=== PATIENT | male | born 1945 | race Caucasian/White ===

== ENCOUNTER 2021-09-11 13:49 | Emergency (ER) | payer MEDICARE, OTHER ==
[~2021-09-11] VITALS: Ht 167.7 cm; Wt 70.3 kg
--- NOTE | 2021-09-11 13:57 | ED Dyspnea ---
General Chief Complaint: Respiratory Problems Stated Complaint: LOW O2 History of Present Illness Date Seen by Provider: Sep 11, 2021 Time Seen by Provider: 13:52 Initial Comments 76-year-old male presents with feeling of some dizziness and off balance and nausea. Patient reports that his symptoms started around a week ago. That he had a little bit abdominal pain is resolved. Patient reports that he maybe had some mild shortness of breath earlier but none at this time. He has been checked and under low oxygen but denies any low oxygen. Patient reports that he was seen by his primary care provider yesterday, tested negative for COVID. That he was given some nausea medication that improved but it returned again today. Allergies and Home Medications Allergies Coded Allergies: hydrocodone (Verified Adverse Reaction, Unknown, Nausea, 09/11/21) Patient Home Medication List Home Medication List Reviewed: Yes Review of Systems Review of Systems Constitutional: No chills; dizziness; No fever; malaise Respiratory: No cough, No short of breath Cardiovascular: No chest pain, No palpitations Gastrointestinal: No abdominal pain, No diarrhea; nausea; No vomiting Musculoskeletal: no symptoms reported Skin: no symptoms reported Psychiatric/Neurological: No Symptoms Reported Physical Exam Vital Signs Vital Signs - First Documented 09/11/21 13:53 Temp 35.4 Pulse 66 Resp 16 B/P (MAP) 145/81 (102) O2 Delivery Room Air Capillary Refill : Height, Weight, BMI Height: '" Weight: lbs. oz. kg; BMI Method: General Appearance: No Apparent Distress, WD/WN Respiratory: Lungs Clear, Normal Breath Sounds Cardiovascular: Regular Rate, Rhythm Gastrointestinal: Non Tender, Soft Extremity: Normal Capillary Refill, Normal Range of Motion Neurologic/Psychiatric: Alert, Oriented x3, No Motor/Sensory Deficits, dairy farm manager II- XII Norm as Tested Progress/Results/Core Measures Results/Orders Lab Results Laboratory Tests Test 09/11/21 13:57 09/11/21 14:03 09/11/21 14:11 Range/Units White Blood Count 9.0 4.3-11.0 10^3/uL Red Blood Count 4.77 4.30-5.52 10^6/uL Hemoglobin 14.1 13.3-17.7 g/dL Hematocrit 42 40-54 % Mean Corpuscular Volume 87 80-99 fL Mean Corpuscular Hemoglobin 30 25-34 pg Mean Corpuscular Hemoglobin Concent 34 32-36 g/dL Red Cell Distribution Width 12.2 10.0-14.5 % Platelet Count 350 130-400 10^3/uL Mean Platelet Volume 8.7 L 9.0-12.2 fL Immature Granulocyte % (Auto) 1 % Neutrophils (%) (Auto) 55 42-75 % Lymphocytes (%) (Auto) 29 12-44 % Monocytes (%) (Auto) 10 0-12 % Eosinophils (%) (Auto) 5 0-10 % Basophils (%) (Auto) 1 0-10 % Neutrophils # (Auto) 5.0 1.8-7.8 X 10^3 Lymphocytes # (Auto) 2.6 1.0-4.0 X 10^3 Monocytes # (Auto) 0.9 0.0-1.0 X 10^3 Eosinophils # (Auto) 0.4 H 0.0-0.3 10^3/uL Basophils # (Auto) 0.1 0.0-0.1 10^3/uL Immature Granulocyte # (Auto) 0.1 0.0-0.1 10^3/uL Sodium Level 138 135-145 MMOL/L Potassium Level 4.1 3.6-5.0 MMOL/L Chloride Level 99 98-107 MMOL/L Carbon Dioxide Level 29 21-32 MMOL/L Anion Gap 10 5-14 MMOL/L Blood Urea Nitrogen 16 7-18 MG/DL Creatinine 1.12 0.60-1.30 MG/DL Estimat Glomerular Filtration Rate 68 BUN/Creatinine Ratio 14 Glucose Level 114 H 70-105 MG/DL Calcium Level 9.8 8.5-10.1 MG/DL Corrected Calcium 9.6 8.5-10.1 MG/DL Magnesium Level 2.0 1.6-2.4 MG/DL Total Bilirubin 0.6 0.1-1.0 MG/DL Aspartate Amino Transf (AST/SGOT) 11 5-34 U/L Alanine Aminotransferase (ALT/SGPT) 13 0-55 U/L Alkaline Phosphatase 77 40-136 U/L Troponin I < 0.30 <0.30 NG/ML Total Protein 6.9 6.4-8.2 GM/DL Albumin 4.2 3.2-4.5 GM/DL Lipase 30 8-78 U/L Influenza Type A Antigen NEGATIVE NEGATIVE Influenza Type B Antigen NEGATIVE NEGATIVE Urine Color YELLOW Urine Clarity CLEAR Urine pH 6.0 5-9 Urine Specific [place] 1.015 L 1.016-1.022 Urine Protein NEGATIVE NEGATIVE Urine Glucose (UA) NEGATIVE NEGATIVE Urine Ketones NEGATIVE NEGATIVE Urine Nitrite NEGATIVE NEGATIVE Urine Bilirubin NEGATIVE NEGATIVE Urine Urobilinogen 0.2 < = 1.0 MG/DL Urine Leukocyte Esterase NEGATIVE NEGATIVE Urine RBC (Auto) NEGATIVE NEGATIVE Urine RBC NONE /HPF Urine WBC 0-2 /HPF Urine Squamous Epithelial Cells RARE /HPF Urine Crystals NONE /LPF Urine Bacteria NEGATIVE /HPF Urine Casts NONE /LPF Urine Mucus SMALL H /LPF Urine Culture Indicated NO My Orders Orders - GAONA,MONICO L DO Cbc With Automated Diff (09/11/21 13:59) Comprehensive Metabolic Panel (09/11/21 13:59) Lipase (09/11/21 13:59) Magnesium (09/11/21 13:59) Ua Culture If Indicated (09/11/21 13:59) Troponin I Fs (09/11/21 13:59) Influenza A & B Antigens (09/11/21 13:59) Ondansetron Injection (Zofran Injectio (09/11/21 14:15) Ns Iv 1000 Ml (Sodium Chloride 0.9%) (09/11/21 14:07) Medications Given in ED Current Medications Medications Dose Ordered Sig/Rashid Route Start Time Stop Time Status Last Admin Dose Admin Ondansetron HCl 4 mg ONCE ONCE IVP 09/11/21 14:15 09/11/21 14:16 DC 09/11/21 14:13 4 MG Vital Signs/I&O 09/11/21 13:53 Temp 35.4 Pulse 66 Resp 16 B/P (MAP) 145/81 (102) O2 Delivery Room Air Progress Progress Note : Progress Note Patient with no significant findings on evaluation both physical and with labs. Patient does feel better following some IV fluids. Potentially could have been mildly dehydrated. Patient reports that he did have a little bit of episode of diarrhea later on during his visit earlier today. Patient likely with a viral syndrome with some nausea, dizziness, diarrhea. Recommended he use a clear liquid diet for the next 24 to 36 hours and then advance as tolerated. We did discuss further evaluation such as CT scans in which he declined. Patient stable and discharged home Departure Impression Primary Impression: Viral syndrome Additional Impression: Dizziness Disposition: 01 HOME, SELF-CARE Condition: Stable Departure-Patient Inst. Patient Instructions: CLEAR LIQUID DIET ADULT/CHILD, Viral Syndrome (DC) Add. Discharge Instructions: Clear liquid diet for the next 24 to 36 hours then advance as tolerated Follow-up with your primary care provider if symptoms or not improving over the next couple days All discharge instructions reviewed with patient and/or family. Voiced understanding. MONICO GAONA DO Sep 11, 2021 13:57
[2021-09-11] MEDS ORDERED: NS IV 1000 ML 1,000 ML IV STA (14:07)
[2021-09-11 14:12] LABS: BASOPHILS % (AUTO) 1 % (0-10); EOSINOPHILS % (AUTO) 5 % (0-10); HEMATOCRIT 42 % (40-54); HEMOGLOBIN 14.1 g/dL (13.3-17.7); LYMPHOCYTES % (AUTO) 29 % (12-44); MEAN CORPUSCULAR HEMOGLOBIN 30 pg (25-34); MEAN CORPUSCULAR HGB CONC 34 g/dL (32-36); MEAN CORPUSCULAR VOLUME 87 fL (80-99); MEAN PLATELET VOLUME 8.7 fL (9.0-12.2); MONOCYTES % (AUTO) 10 % (0-12); NEUTROPHILS % (AUTO) 55 % (42-75); PLATELET COUNT 350 10^3/uL (130-400)
[2021-09-11 14:13] LABS: BASOPHILS # (AUTO) 0.1 10^3/uL (0.0-0.1); EOSINOPHILS # (AUTO) 0.4 10^3/uL (0.0-0.3); LYMPHOCYTES # (AUTO) 2.6 X 10^3 (1.0-4.0); MONOCYTES # (AUTO) 0.9 X 10^3 (0.0-1.0)
[2021-09-11] MEDS ORDERED: ONDANSETRON 4 MG/2 ML (SDV) Z0FRAN IVP ONE (14:15)
[2021-09-11 14:26] LABS: BILIRUBIN,URINE NEGATIVE (NEGATIVE); CLARITY,URINE CLEAR; COLOR,URINE YELLOW; GLUCOSE, URINE (UA) NEGATIVE (NEGATIVE); KETONES,URINE NEGATIVE (NEGATIVE); LEUKOCYTE ESTERASE ,URINE NEGATIVE (NEGATIVE); NITRITE,URINE NEGATIVE (NEGATIVE); PROTEIN,URINE NEGATIVE (NEGATIVE)
[2021-09-11 14:31] LABS: BACTERIA,URINE NEGATIVE /HPF; SQUAMOUS EPITHELIAL CELL,UR RARE /HPF; WBC,URINE 0-2 /HPF
[2021-09-11 14:35] LABS: BUN/CREATININE RATIO 14; CALCIUM 9.8 MG/DL (8.5-10.1); CARBON DIOXIDE 29 MMOL/L (21-32); CHLORIDE 99 MMOL/L (98-107); CREATININE SERUM 1.12 MG/DL (0.60-1.30); GFR ESTIMATED 68; GLUCOSE 114 MG/DL (70-105); POTASSIUM 4.1 MMOL/L (3.6-5.0); SODIUM 138 MMOL/L (135-145)
[2021-09-11 14:36] LABS: ALANINE AMINOTRANSFERASE 13 U/L (0-55); ALBUMIN 4.2 GM/DL (3.2-4.5); ALKALINE PHOSPHATASE 77 U/L (40-136); BILIRUBIN,TOTAL 0.6 MG/DL (0.1-1.0); LIPASE 30 U/L (8-78); TOTAL PROTEIN 6.9 GM/DL (6.4-8.2)
[2021-09-11 15:11] VITALS: BP 125/68
== END 2021-09-11 15:11 | disposition home or self-care (01) ==
LOC: ER FS 13:52
DX: B34.9 Viral infection, unspecified (principal); R42 Dizziness and giddiness
CPT/HCPCS: 36415; 80053; 81000; 83690; 83735; 84484; 85025; 87804; 93005

== ENCOUNTER → 2021-09-16 | Outpatient (CLI) | payer MEDICARE, OTHER ==
[~2021-09-16] MED LIST: CATHETER FLUSH 10 ML SYR IV PRN; HOLD METFORMIN - RECEIVED CONTRAST 20 ML VIAL IV SCH; IOHEXOL 350 MG/ML 100 ML (OMNIPAQUE 350) VIAL IV ONE; NS 100 ML (IVPB) BAG IV ONE
--- NOTE | 2021-09-16 11:06 | Diagnostic Imaging Report ---
INDICATION: Dizziness and weakness. TECHNIQUE: Routine non contrast-enhanced axial images were obtained from the skull base to the vertex. Auto Exposure Controls were utilized during the CT exam to meet ALARA standards for radiation dose reduction COMPARISON: None. FINDINGS: The ventricles and cortical sulci are diffusely prominent, compatible with age-related volume loss. There are confluent areas of abnormal, low attenuation in the periventricular white matter. This is consistent with small vessel ischemic changes; age-indeterminate. There is no prior study available for comparison. There is no midline shift or mass-effect. No acute intra-axial hemorrhage is seen. There are no abnormal areas of increased or decreased density to suggest acute hemorrhage or edema. No extra-axial masses or collections are present. The bony calvarium is intact. The visualized paranasal sinuses show mild to moderate diffuse scattered mucosal thickening. The mastoid air cells are clear. IMPRESSION: 1. No acute intracranial abnormality. No CT evidence of mass, acute infarct or intracranial hemorrhage. 2. Small vessel ischemic changes in the periventricular and subcortical white matter; likely chronic. Dictated by: Dictated on workstation # [id number]
--- NOTE | 2021-09-16 11:39 | Diagnostic Imaging Report ---
PROCEDURE: CT abdomen and pelvis with contrast. TECHNIQUE: Multiple contiguous axial images were obtained through the abdomen and pelvis after administration of intravenous contrast. Auto Exposure Controls were utilized during the CT exam to meet ALARA standards for radiation dose reduction. All CT scans use one or more of the following dose optimizing techniques: automated exposure control, MA and/or KvP adjustment based on patient size and exam type or iterative reconstruction. DATE: September 16, 2021. COMPARISON: None. INDICATION: 76-year-old male, nausea and vomiting. Weakness. FINDINGS: There is very mild dependent atelectasis in the right and left lower lobes. The heart is not enlarged. There is no pericardial effusion. The liver is unremarkable in size and contour. There is no identified liver lesion. The main, right, and left portal veins are patent. The gallbladder is unremarkable. There is no intrahepatic or extrahepatic bile duct dilation. The main pancreatic duct is not abnormally dilated. Unremarkable appearance of the pancreatic parenchyma. The spleen is normal in size. There are small splenic calcifications likely relating to sequela of granulomatous disease. The adrenal glands are unremarkable. There is low-attenuation in the superior mesenteric vein as well as in the region of the portal confluence. This could relate to mixing artifact although nonocclusive thrombus would be difficult to exclude. There is a benign coarse calcification associated with the right kidney. The urinary collecting systems are not distended. There is no identified ureteral stone. The urinary bladder is underdistended and not well-evaluated. There is wall thickening of the distal sigmoid colon/rectum. The appendix is unremarkable. There does appear to be wall thickening of the proximal and mid stomach. There is no free intraperitoneal air. There is no drainable fluid collection. There is no free pelvic fluid. There are atherosclerotic calcifications. 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 There are degenerative changes of the spine. There is no identified acute bony abnormality. IMPRESSION: CT ABDOMEN AND PELVIS. 1. Abnormal wall thickening of the distal sigmoid colon and rectum which may reflect a nonspecific colitis. Colon cancer may also produce this appearance. There is no identified pericolonic lymph node. 2. Suspected wall thickening of the proximal and mid stomach. A nonspecific gastritis and malignancy would be differential diagnostic considerations. 3. Low-attenuation in the superior mesenteric vein and in the region of the portal confluence which most likely reflects mixing artifact although nonocclusive thrombus is difficult to completely exclude. Dictated by: Dictated on workstation # [id number]
== END ==
LOC: RAD FS 09:24
PROVIDERS: ATTEND Family Medicine
DX: I67.82 Cerebral ischemia (principal); K63.89 Other specified diseases of intestine; R11.2 Nausea with vomiting, unspecified
CPT/HCPCS: 70450; 74177